=== PATIENT | female | born 1950 | race Two or more races ===

== ENCOUNTER 2024-11-15 19:47 | Emergency (ER) | payer OTHER, SELFPAY ==
--- NOTE | 2024-11-15 19:59 | EKG_ITS ---
[facility] Test Date: 2024-11-15 Pat Name: JOSE E DUMONT Department: Room: - Gender: Female Unit Leader: : 1950 Requested By: Mika Machado Order Number: [id number] Reading MD: Mika Machado Measurements Intervals [place] Rate: 66 P: 60 MI: 167 QRS: 67 QRSD: 78 T: 68 QT: 371 QTc: 389 Interpretive Statements SINUS RHYTHM Compared to ECG 06/27/2024 13:23:51 T-wave abnormality no longer present /store/S0/[id number]
[2024-11-15 20:20] VITALS: BP 186/75; PULSE 70; RESP 19; TEMP 36.6; O2SAT 98; BMI 27.3
--- NOTE | 2024-11-15 20:23 | PD.EDWEAK ---
ED Weakness RME/HPI General Chief complaint: Weakness Stated complaint: LEGS FEEL WEAK, FEELS LIKE GOING TO FAINT Time Seen by Provider: 11/15/24 20:19 Arrival date/time: 11/15/24 19:47 RME / HPI RME / HPI Narrative: 74-year-old female patient with significant history of hypertension, hypercholesterolemia, came in for evaluation regarding bilateral lower leg weakness. Onset of symptoms about 1 hour prior to ER visit, as bilateral legs feels like going away, associated with sensation of fainting. Patient denies any dizziness headache neck pain chest pain abdominal pain or back pain. Symptoms severity is mild. On my initial evaluation patient is walking and told me that her symptoms is totally gone. Related Data Home Medications ?Medication ?Instructions ?Recorded ?Confirmed glimepiride 4 mg tablet 4 mg PO QDAY 07/07/19 07/16/20 lisinopril 10 mg tablet 10 mg PO QDAY 07/07/19 07/16/20 lovastatin 20 mg tablet 20 mg PO QDAY 07/07/19 07/16/20 metformin 1,000 mg tablet 1,000 mg PO BID 07/07/19 07/16/20 nitroglycerin 0.4 mg sublingual 0.4 mg buccal PRN PRN Chest Pain 07/16/20 07/16/20 tablet Previous Rx's ?Medication ?Instructions ?Recorded acetaminophen 500 mg tablet 500 mg PO Q6H PRN pain #30 tabs 05/28/20 (Tylenol Extra Strength) meclizine 25 mg tablet 25 mg PO BID PRN dizziness #20 tabs 05/28/20 budesonide 180 mcg/actuation 2 inh inhalation BID #1 ea 12/13/22 breath activated powder inhaler azithromycin 500 mg tablet See Rx Instructions PO .COMPLEX #6 03/21/23 tabs benzonatate 100 mg capsule 100 mg PO TID #14 caps 03/21/23 meloxicam 15 mg tablet 15 mg PO QDAY #20 tabs 06/02/23 acetaminophen 500 mg capsule 1,000 mg (2 x 500 mg) PO Q8HR PRN 01/13/24 pain #30 caps albuterol sulfate 90 mcg/actuation 2 puff inhalation Q6H PRN 01/13/24 aerosol inhaler (ProAir HFA) shortness of breath or wheezing #8.5 grams benzonatate 100 mg capsule 100 mg PO TID #14 caps 01/13/24 docusate sodium 100 mg capsule 100 mg PO BID #20 caps 01/20/24 (Colace) peg 3350-electrolytes 236 240 ml PO Q10M #4,000 mL 01/20/24 gram-22.74 gram-6.74 gram-5.86 gram solution (Golytely) Allergies Allergy/AdvReac Type Severity Reaction Status Date / Time No Known Allergies Allergy Verified 01/20/24 13:30 Review of Systems Review of Systems Narrative Review of Systems: Review of system reviewed and within normal limits except mentioned in HPI ED Exam Narrative Physical exam: VITAL SIGNS: Reviewed. GENERAL APPEARANCE: Alert and interactive, follows commands, no acute distress, HEAD AND FACE: Non-traumatic. ENT: PERRL, pink conjunctivitis, eyelid no trauma, Mucous membrane moist. NECK: Supple, nontender, no nuchal rigidity. CHEST: No tenderness, no crepitus, no paradoxical movement, no retractions. LUNGS: Clear, well ventilated, symmetric, no rales, no wheezing, no ronchi, no stridor, good breath sounds bilaterally. HEART: Regular rate, regular rhythm, no murmur, no gallops. ABDOMEN: Soft, positive bowel sounds, nondistended, no guarding, nontender, no rebound, no masses, RECTAL: Deferred. GENITAL: Deferred. NEUROLOGICAL: Gross motor function intact sensory function intact, Appropriate for age. MUSCULOSKELETAL: low back nontender, full range of motion. EXTREMITIES: Nontender, full range of motion. SKIN: Color pink, dry, no rash, no lacerations, no abrasions, no contusions. LYMPHATICS: Deferred. Course Quality Measures none Orders Category Date Time Status Blood glucose [Bedside Blood Glucose] NOW Care 11/15/24 19:59 Active EKG (ED ONLY) *Do not use* NOW Care 11/15/24 20:00 Completed EKG (ED Only) Stat Exams 11/15/24 19:59 Draft CBC Stat Lab 11/15/24 20:47 Completed Comprehensive Metabolic Panel Stat Lab 11/15/24 20:47 Completed Partial Thromboplastin Time Stat Lab 11/15/24 20:47 Completed Vital Signs Vital signs: Vital Signs Temperature 97.9 F 11/15/24 20:20 Pulse Rate 70 11/15/24 20:20 Respiratory Rate 19 11/15/24 20:20 Blood Pressure 186/75 H 11/15/24 20:20 Pulse Oximetry (%) 98 11/15/24 20:20 Oxygen Delivery Method Room Air 11/15/24 20:20 Weakness [facility] Narrative [facility] Narrative:: 74-year-old female patient with significant history of hypertension, hypercholesterolemia, came in for evaluation regarding bilateral lower leg weakness. Onset of symptoms about 1 hour prior to ER visit, as bilateral legs feels like going away, associated with sensation of fainting. Patient denies any dizziness headache neck pain chest pain abdominal pain or back pain. Symptoms severity is mild. On my initial evaluation patient is walking and told me that her symptoms is totally gone. Patient's laboratory workup all came back normal. Multiple reevaluation patient told me that there was no recurrence of bilateral lower leg weakness. Patient was ambulatory more than 20 feet [id number] without any recurrence of the bilateral lower leg weakness. Patient is walking normal. Patient data External records reviewed:: None Clinical information provided by:: patient Social determinants that could affect healthcare access:: none Patient has the following chronic illnesses:: Hypertension diabetes mellitus How is presenting disease/condition affected by chronic disease/condition?: exacerbated by Evaluation data The following diagnostics were reviewed and interpreted by me:: lab results Lab and/or radiology exams considered but not ordered:: None Interpretation Summary: See results in MDM Medications / Prescriptions Medications or Prescriptions considered but not ordered:: None Medication administrations:: None Consultations Consultation(s) initiated? (list below): No Diagnosis Weakness Differential Diagnosis: dehydration and other (Bilateral lower leg weakness, muscle weakness,) Most likely diagnosis given after review of the tests above:: Bilateral lower leg weakness Admission Indicated Admission indicated?: not indicated Admission Request Was there a request for admission?: No Disposition Plan Disposition Plan: Discharge Discharge Attestation Discharge Attestation: The patient was given an opportunity to ask questions and understood the discharge instructions. Discharge instructions specifically effects, indications for sooner follow up or return to the emergency department, and the expected course of current diagnosis. Patient condition: Stable Discharge Plan Plan Patient Disposition: HOME (Self Care) Disposition Comment: Stable Prescriptions/Referrals Prescriptions/Med Rec: No Action meclizine 25 mg tablet 25 mg PO BID PRN (Reason: dizziness) Qty: 20 0RF acetaminophen [Tylenol Extra Strength] 500 mg tablet 500 mg PO Q6H PRN (Reason: pain) Qty: 30 0RF metformin 1,000 mg tablet 1,000 mg PO BID Patient Comments: TOME FRIDA TABLETA POR V?A ORAL DOS VECES AL D?A lisinopril 10 mg tablet 10 mg PO QDAY Patient Comments: TOME FRIDA TABLETA TODOS LOS D? glimepiride 4 mg tablet 4 mg PO QDAY Patient Comments: TOME FRIDA TABLETA POR V?A ORAL TODOS LOS D? lovastatin 20 mg tablet 20 mg PO QDAY Patient Comments: TOME FRIDA TABLETA POR V?A ORAL CON LAS COMIDAS EN LA NOCHE TODOS LOS D? nitroglycerin 0.4 mg tablet, sublingual 0.4 mg BUCCAL PRN PRN (Reason: Chest Pain) benzonatate 100 mg capsule 100 mg PO TID Qty: 14 0RF azithromycin 500 mg tablet See Rx Instructions .ROUTE .COMPLEX Qty: 6 0RF Rx Instructions: take 500 mg today (day 1), then 250 mg for 4 days (days 2-5) meloxicam 15 mg tablet 15 mg PO QDAY Qty: 20 0RF docusate sodium [Colace] 100 mg capsule 100 mg PO BID Qty: 20 0RF peg 3350-electrolytes [Golytely] 236-22.74-6.74 -5.86 gram recon soln 240 ml PO Q10M Qty: 4000 0RF Rx Instructions: until fecal effluent is clear budesonide 180 mcg/actuation aerosol powdr breath activated 2 inh inhalation BID Qty: 1 0RF acetaminophen 500 mg capsule 1,000 mg PO Q8HR PRN (Reason: pain) Qty: 30 0RF benzonatate 100 mg capsule 100 mg PO TID Qty: 14 0RF albuterol sulfate [ProAir HFA] 90 mcg/actuation HFA aerosol inhaler 2 puff inhalation Q6H PRN (Reason: shortness of breath or wheezing) Qty: 8.5 0RF Referrals: No Primary/Family,Physician [Primary Care Provider] - In 1 week Problem List Clinical Impression: Bilateral leg weakness Patient/Caregiver Discharge Instructions Discharge Activity: activity as tolerated Education Materials: Preventing Falls: Staying Active Additional Instructions: Thank you for the opportunity for serving you today. You are stable for discharged . You are advised to: Follow-up with your PCP in 1 to 2 days Return to ED for worsening of symptoms Increase oral fluids Print Language: Thai Stand Alone Forms: Corinne Award Info., Patient Portal Info Letter PA/FINANCIAL EXAMINER Supervising Physician PA/FINANCIAL EXAMINER Supervising Physician: MD Carolina
[2024-11-15 21:05] LABS: Basophils # (Auto) 0.1 Thou/mm3 (0.0-0.2); Basophils % (Auto) 1 % (0-2.5); Eosinophils # (Auto) 0.1 Thou/mm3 (0.0-0.5); Eosinophils % (Auto) 1 % (0-10); Hematocrit 33.4 % (36.0-46.0); Hemoglobin 11.8 g/dL (12.0-16.0); Immature Granulocytes % (Auto) 0 % (0-0); Immature Granulocytes Auto 0.02 Thou/mm3 (0.00-0.00); Lymphocytes # (Auto) 1.9 Thou/mm3 (1.0-4.8); Lymphocytes % (Auto) 18 % (10-50); Mean Corpuscular HGB Conc 35.3 g/dl (31.0-37.0); Mean Corpuscular Hemoglobin 31.1 pg (25.0-35.0); Mean Corpuscular Volume 88 fL (80-100); Monocytes # (Auto) 0.8 Thou/mm3 (0.0-0.8); Monocytes % (Auto) 8 % (0-12); Neutrophils # (Auto) 7.4 Thou/mm3 (1.8-7.7); Neutrophils % (Auto) 72 % (37-80); Nucleated Red Blood Cell % 0 /100 WBC (0); Platelet Count 187 Thou/mm3 (140-440); RDW Standard Deviation 41.5 fL (36.4-46.3); White Blood Count 10.2 Thou/mm3 (3.6-11.0)
[2024-11-15 21:10] LABS: Partial Thromboplastin Time 25.9 Seconds (22.0-36.0)
[2024-11-15 21:14] LABS: Alanine Aminotransferase 9 U/L (10-49); Albumin, Serum 4.2 gm/dL (3.4-4.8); Albumin/Globulin Ratio 1.6 (1.2-2.2); Alkaline Phosphatase 84 U/L (46-116); Anion Gap 9 (7-16); Aspartate Amino Transferase 17 U/L (0-34); BUN/Creatinine Ratio 15 Ratio (12-20); Bilirubin,Total 0.6 mg/dL (0.3-1.2); Blood Urea Nitrogen 15 mg/dL (9-23); Calcium 9.9 mg/dL (8.3-10.6); Calcium (Corrected) 9.9 mg/dL (8.5-10.1); Carbon Dioxide 24.3 mMol/L (20.0-31.0); Chloride 101 mMol/L (98-107); Estimated Creatinine Clearance 42.8 mL/min (>60); Globulin 2.7 gm/dL (2.3-3.5); Glucose 101 mg/dL (74-106); Osmolality,Calculated 269 (275-295); Potassium 4.2 mMol/L (3.4-5.1); Sodium 134 mMol/L (136-145); Total Protein 6.9 gm/dL (5.7-8.2); eGFR 59 See Note
== END 2024-11-15 22:55 | disposition home or self-care (01) ==
PROVIDERS: Nurse Practitioner Family; Emergency Provider Emergency Medicine
DX: R53.1 Weakness (principal); I10 Essential (primary) hypertension; E78.00 Pure hypercholesterolemia, unspecified
CPT/HCPCS: 36415; 80053; 81001; 85025; 85730; 93005; 99283

== ENCOUNTER 2025-05-08 17:50 | Emergency (ER) | payer OTHER, SELFPAY ==
[2025-05-08 18:47] VITALS: BP 178/72; PULSE 71; RESP 18; TEMP 36.6; O2SAT 97; BMI 23.8
--- NOTE | 2025-05-08 19:29 | PD.EDDENTL ---
ED Dental RME/HPI General Chief complaint: Dental/Oral/Throat Stated complaint: TONGUE IS BURNING, NAUSEA, HEADACHE Time Seen by Provider: 05/08/25 18:57 Arrival date/time: 05/08/25 17:50 74-year-old female reports with complaints of sores on the tongue and lips some nausea and headache that has been occurring for 7 months. Patient does have a primary care appointment tomorrow where she will have labs drawn but she is more concerned the sores on her tongue. Patient states that is causing difficulty for her to eat and resullting in nausea. she denies any fever or chills weakness fatigue vomiting diarrhea constipation blood or mucus in stools. Patient has not taken any medications for symptoms Limitations: no limitations Related Data Home Medications ?Medication ?Instructions ?Recorded ?Confirmed glimepiride 4 mg tablet 4 mg PO QDAY 07/07/19 07/16/20 lisinopril 10 mg tablet 10 mg PO QDAY 07/07/19 07/16/20 lovastatin 20 mg tablet 20 mg PO QDAY 07/07/19 07/16/20 metformin 1,000 mg tablet 1,000 mg PO BID 07/07/19 07/16/20 nitroglycerin 0.4 mg sublingual 0.4 mg buccal PRN PRN Chest Pain 07/16/20 07/16/20 tablet Previous Rx's ?Medication ?Instructions ?Recorded acetaminophen 500 mg tablet 500 mg PO Q6H PRN pain #30 tabs 05/28/20 (Tylenol Extra Strength) meclizine 25 mg tablet 25 mg PO BID PRN dizziness #20 tabs 05/28/20 budesonide 180 mcg/actuation 2 inh inhalation BID #1 ea 12/13/22 breath activated powder inhaler azithromycin 500 mg tablet See Rx Instructions PO .COMPLEX #6 03/21/23 tabs benzonatate 100 mg capsule 100 mg PO TID #14 caps 03/21/23 meloxicam 15 mg tablet 15 mg PO QDAY #20 tabs 06/02/23 acetaminophen 500 mg capsule 1,000 mg (2 x 500 mg) PO Q8HR PRN 01/13/24 pain #30 caps albuterol sulfate 90 mcg/actuation 2 puff inhalation Q6H PRN 01/13/24 aerosol inhaler (ProAir HFA) shortness of breath or wheezing #8.5 grams benzonatate 100 mg capsule 100 mg PO TID #14 caps 01/13/24 docusate sodium 100 mg capsule 100 mg PO BID #20 caps 01/20/24 (Colace) peg 3350-electrolytes 236 240 ml PO Q10M #4,000 mL 01/20/24 gram-22.74 gram-6.74 gram-5.86 gram solution (Golytely) magic mouth wash See Rx Instructions .Route 05/08/25 .COMPLEX #118 mL Allergies Allergy/AdvReac Type Severity Reaction Status Date / Time No Known Allergies Allergy Verified 05/08/25 17:53 Review of Systems Constitutional Constitutional: Denies chills, Denies fever(s) and Denies headache(s) ENT Ears, Nose, Mouth, and Throat: Denies dizziness, Denies headache(s), Reports mouth lesions, Reports mouth pain, Denies nose pain, Denies sinus pain, Denies throat swelling and Denies tongue swelling Cardiovascular Cardiovascular: Denies chest pain and Denies dyspnea Respiratory Respiratory: Denies cough and Denies dyspnea Gastrointestinal Gastrointestinal: Reports nausea and Denies vomiting Integumentary/Breasts Skin/Breast: Denies skin pain and Denies unusual bruising Neurologic Neurologic: Denies dizziness and Denies headache(s) Allergic/Immunologic Allergic/Immunologic: Denies throat swelling and Denies tongue swelling Past Medical History Past Medical History NEUROLOGIC: Negative Neurological Disorders or Seizures CARDIAC: Positive Hypercholesterolemia and Hypertension; Negative Cardiac Disorders or Congestive Heart Failure RESPIRATORY: Positive Asthma; Negative Chronic Obstructive Pulmonary Disease (COPD) GASTROINTESTINAL: Positive Gastrointestinal Disorders GENITOURINARY: Positive Genitourinary Disorders and Kidney Stones; Negative Renal Disease MUSCULOSKELETAL: Positive Musculoskeletal Disorders and Arthritis ENT: Positive Cataracts ENDOCRINE: Positive Endocrine Disorders and Diabetes Mellitus Type 2; Negative Diabetes Mellitus Type 1 HEMATOLOGIC: Negative Blood Disorders OTHER HISTORY: Negative Autoimmune Disease, Blood Transfusions, Blood Transfusion Reaction or Anesthesia Reactions Surgical History SURGICAL: Positive Section Social History SMOKING STATUS: Never smoker ED Exam General Limitations: Present no limitations General appearance: Present alert and in no apparent distress Head Head exam: Present atraumatic Eye Eye exam: Present normal appearance, PERRL and EOMI ENT ENT exam: Present mucous membranes moist; Absent normal exam or normal oropharynx (Multiple chancre sore noted ) Neck Neck exam: Present normal inspection, full ROM and trachea midline Back Exam Back exam: Present normal inspection and full ROM Neurological Exam Neurological exam: Present alert, oriented X3 and CN II-XII intact Psychiatric Psychiatric exam: Present normal affect and normal mood Skin Skin exam: Present warm, dry, intact and normal color Course Quality Measures none Vital Signs Vital signs: Vital Signs Temperature 98 F 05/08/25 18:47 Pulse Rate 71 05/08/25 18:47 Respiratory Rate 18 05/08/25 18:47 Blood Pressure 178/72 H 05/08/25 18:47 Pulse Oximetry (%) 97 05/08/25 18:47 Oxygen Delivery Method Room Air 05/08/25 18:47 Dental / Oral Patient data External records reviewed:: None Clinical information provided by:: patient Social determinants that could affect healthcare access:: none Patient has the following chronic illnesses:: none How is presenting disease/condition affected by chronic disease/condition?: no chronic disease Evaluation data The following diagnostics were reviewed and interpreted by me:: other (specify) (none) Lab and/or radiology exams considered but not ordered:: none Interpretation Summary: n/a Medications / Prescriptions Medications or Prescriptions considered but not ordered:: none Medication administrations:: none Consultations Consultation(s) initiated? (list below): No Diagnosis Most likely diagnosis given after review of the tests above:: Aphthous ulcers Admission Indicated Admission indicated?: not indicated Admission Request Was there a request for admission?: No Disposition Plan Disposition Plan: Discharge Discharge Attestation Discharge Attestation: The patient and all family members were given an opportunity to ask questions and understood the discharge instructions. Discharge instructions specifically effects, indications for sooner follow up or return to the emergency department, and the expected course of current diagnosis. Patient condition: Stable Discharge Plan Plan Patient Disposition: HOME (Self Care) Prescriptions/Referrals Prescriptions/Med Rec: New magic mouth wash See Rx Instructions .ROUTE .COMPLEX Qty: 118 0RF Rx Instructions: 1/3 Benadryl 12.5mg; 1/3 Maalox; 1/3 Xylocaine 2% sig: hold 5 mL in mouth for 2 min then swallow q6h No Action meclizine 25 mg tablet 25 mg PO BID PRN (Reason: dizziness) Qty: 20 0RF acetaminophen [Tylenol Extra Strength] 500 mg tablet 500 mg PO Q6H PRN (Reason: pain) Qty: 30 0RF metformin 1,000 mg tablet 1,000 mg PO BID Patient Comments: KAYY GALICIA TABLETA POR V?A ORAL DOS VECES AL D?A lisinopril 10 mg tablet 10 mg PO QDAY Patient Comments: TOME FRIDA TABLETA TODOS LOS D? glimepiride 4 mg tablet 4 mg PO QDAY Patient Comments: TOME FRIDA TABLETA POR V?A ORAL TODOS LOS D? lovastatin 20 mg tablet 20 mg PO QDAY Patient Comments: TOME FRIDA TABLETA POR V?A ORAL CON LAS COMIDAS EN LA NOCHE TODOS LOS D? nitroglycerin 0.4 mg tablet, sublingual 0.4 mg BUCCAL PRN PRN (Reason: Chest Pain) benzonatate 100 mg capsule 100 mg PO TID Qty: 14 0RF azithromycin 500 mg tablet See Rx Instructions .ROUTE .COMPLEX Qty: 6 0RF Rx Instructions: take 500 mg today (day 1), then 250 mg for 4 days (days 2-5) meloxicam 15 mg tablet 15 mg PO QDAY Qty: 20 0RF docusate sodium [Colace] 100 mg capsule 100 mg PO BID Qty: 20 0RF peg 3350-electrolytes [Golytely] 236-22.74-6.74 -5.86 gram recon soln 240 ml PO Q10M Qty: 4000 0RF Rx Instructions: until fecal effluent is clear budesonide 180 mcg/actuation aerosol powdr breath activated 2 inh inhalation BID Qty: 1 0RF acetaminophen 500 mg capsule 1,000 mg PO Q8HR PRN (Reason: pain) Qty: 30 0RF benzonatate 100 mg capsule 100 mg PO TID Qty: 14 0RF albuterol sulfate [ProAir HFA] 90 mcg/actuation HFA aerosol inhaler 2 puff inhalation Q6H PRN (Reason: shortness of breath or wheezing) Qty: 8.5 0RF Referrals: Jose G Gil MD [Primary Care Provider, Family Practice] - In 1 week Problem List Clinical Impression: Aphthous ulcer Patient/Caregiver Discharge Instructions Discharge Activity: activity as tolerated Education Materials: Understanding Canker Sores, ED Canker Sore Additional Instructions: Use medication as directed and as needed follow with your primary care provider as planned and hydrate well Print Language: [place] Stand Alone Forms: Corinne Award Info., Patient Portal Info Letter
[2025-05-08] MEDS: ONDANSETRON ODT 4 MG TABRAP PO (19:56)
== END 2025-05-08 19:57 | disposition home or self-care (01) ==
PROVIDERS: Emergency Provider Emergency Medicine; PCP Family Medicine
DX: K12.0 Recurrent oral aphthae (principal)
CPT/HCPCS: 99283; Q0162

== ENCOUNTER 2025-05-22 13:26 | Emergency (ER) | payer OTHER, SELFPAY ==
[2025-05-22 13:34] VITALS: BP 151/64; PULSE 79; RESP 18; TEMP 36.9; O2SAT 97
--- NOTE | 2025-05-22 13:38 | XR_ITS ---
Examination: PA lateral chest 2 views TECHNIQUE: Upright PA lateral chest 2 views Date and time: May 22, 2025, 1418 hours INDICATIONS: Injury to the chest 5 days ago, chest pain FINDINGS: Normal heart size Small retrocardiac gastric hernia. No pneumothorax. Clavicles, ribs thoracic vertebral bodies appear intact IMPRESSION: No pneumothorax pulmonary contusion or hemothorax
--- NOTE | 2025-05-22 13:38 | EDRME_ITS ---
Rapid Medical Screening Exam RME Arrival date/time: 05/22/25 13:26 74-year-old female presents Emergency Department today states she had a ground- level fall on Tuesday patient reports on Tuesday she developed pain in her chest. Chief Complaint: Fall Vital signs: Vital Signs Temperature 98.5 F 05/22/25 13:34 Pulse Rate 79 05/22/25 13:34 Respiratory Rate 18 05/22/25 13:34 Blood Pressure 151/64 H 05/22/25 13:34 Pulse Oximetry (%) 97 05/22/25 13:34 Oxygen Delivery Method Room Air 05/22/25 13:34
--- NOTE | 2025-05-22 13:38 | EKG_ITS ---
[facility] Test Date: 2025-05-22 Pat Name: JOSE E DUMONT Department: Room: - Gender: Female Emergency Veterinarian: : 1950 Requested By: Romeo Ny (STAN) Order Number: [id number] Reading MD: Romeo Ny (AIR EXPORT OPERATIONS AGENT) Measurements Intervals [place] Rate: 72 P: 50 UT: 167 QRS: 65 QRSD: 78 T: 56 QT: 358 QTc: 393 Interpretive Statements SINUS RHYTHM Compared to ECG 11/15/2024 20:17:21 No significant changes /store/S0/[id number]
[2025-05-22 14:03] LABS: Collection Type, Urine Clean Catch
[2025-05-22 14:03] LABS: Basophils # (Auto) 0.0 Thou/mm3 (0.0-0.2); Basophils % (Auto) 0 % (0-2.5); Eosinophils # (Auto) 0.0 Thou/mm3 (0.0-0.5); Eosinophils % (Auto) 0 % (0-10); Hematocrit 33.6 % (36.0-46.0); Hemoglobin 11.4 g/dL (12.0-16.0); Immature Granulocytes Auto 0.03 Thou/mm3 (0.00-0.00); Lymphocytes # (Auto) 0.9 Thou/mm3 (1.0-4.8); Lymphocytes % (Auto) 9 % (10-50); Mean Corpuscular HGB Conc 33.9 g/dl (31.0-37.0); Mean Corpuscular Hemoglobin 30.6 pg (25.0-35.0); Mean Corpuscular Volume 90 fL (80-100); Monocytes # (Auto) 0.7 Thou/mm3 (0.0-0.8); Monocytes % (Auto) 8 % (0-12); Neutrophils # (Auto) 8.0 Thou/mm3 (1.8-7.7); Neutrophils % (Auto) 82 % (37-80); Nucleated Red Blood Cell # 0.00 Thou/mm3 (0.00-0.00); Nucleated Red Blood Cell % 0 /100 WBC (0); Platelet Count 214 Thou/mm3 (140-440); RDW Standard Deviation 42.3 fL (36.4-46.3); Red Blood Count 3.72 Miln/mm3 (4.00-5.20); White Blood Count 9.7 Thou/mm3 (3.6-11.0)
[2025-05-22 14:23] LABS: Bacteria,Urine Rare; Bilirubin,Urine Negative (Negative); Blood,Urine 2+ (Negative); Color,Urine Yellow (Lt Yel-Yel); Glucose, Urine Negative (Negative); Ketones,Urine Negative (Negative); Leukocyte Esterase,Urine Positive (Negative); Nitrite,Urine Negative (Negative); PH,Urine 5.5 (5.0-7.0); Protein,Urine 1+ (Neg - Trace); RBC,Urine 8 /hpf (0-3); Specific Gravity,Urine 1.009 (1.001-1.035); Squamous Epithelial Cell,Urine 2 /hpf (0-5); Urobilinogen,Urine Negative mg/dL (0.0-1.0); WBC,Urine 1031 /hpf (0-5)
[2025-05-22 14:25] LABS: Clarity,Urine Turbid (Clear/Hazy); Culture Indicated,Urine Yes
[2025-05-22 14:32] LABS: Alanine Aminotransferase 10 U/L (10-49); Albumin, Serum 4.2 gm/dL (3.4-4.8); Albumin/Globulin Ratio 1.8 (1.2-2.2); Alkaline Phosphatase 86 U/L (46-116); Anion Gap 8 (7-16); Aspartate Amino Transferase 15 U/L (0-34); BUN/Creatinine Ratio 13 Ratio (12-20); Bilirubin,Total 0.9 mg/dL (0.3-1.2); Blood Urea Nitrogen 13 mg/dL (9-23); Calcium 9.1 mg/dL (8.3-10.6); Calcium (Corrected) 9.1 mg/dL (8.5-10.1); Carbon Dioxide 26.0 mMol/L (20.0-31.0); Chloride 101 mMol/L (98-107); Creatinine (Component) 1.0 mg/dL (0.6-1.3); Estimated Creatinine Clearance 47.1 mL/min (>60); Globulin 2.4 gm/dL (2.3-3.5); Glucose 207 mg/dL (74-106); Osmolality,Calculated 276 (275-295); Potassium 4.2 mMol/L (3.4-5.1); Sodium 135 mMol/L (136-145); Total Protein 6.6 gm/dL (5.7-8.2); Troponin I < 0.002 ng/mL (0.0-0.045); eGFR 59 See Note
--- NOTE | 2025-05-22 16:46 | EDNOTE_ITS ---
ED Fall Injury RME/HPI General Chief Complaint: Fall Stated Complaint: FELL CATCHING SELF W/ R) ARM, INTERM. CHEST PAIN Time Seen by Provider: 05/22/25 15:08 Arrival date/time: 05/22/25 13:26 RME / HPI RME / HPI Narrative: 74-year-old female with significant history of diabetes mellitus, hypertension presents Emergency Department today states she had a ground-level fall on Tuesday patient reports on Tuesday she developed pain in her chest. Described as dull ache, severity mild. Patient also complained of dysuria since Tuesday, getting worse severity moderate. Denies any fever denies any vomiting denies any back pain. Denies any abdominal pain. No medication was taken prior to ER visit. Related Data Home Medications ?Medication ?Instructions ?Recorded ?Confirmed glimepiride 4 mg tablet 4 mg PO QDAY 07/07/19 lisinopril 10 mg tablet 10 mg PO QDAY 07/07/1907/16 lovastatin 20 mg tablet 20 mg PO QDAY 07/07/1907/16 metformin 1,000 mg tablet 1,000 mg PO BID 07/07/19 nitroglycerin 0.4 mg sublingual 0.4 mg buccal PRN PRN Chest Pain 07/16/20 07/16/20 tablet Previous Rx's ?Medication ?Instructions ?Recorded acetaminophen 500 mg tablet 500 mg PO Q6H PRN pain #30 tabs 05/28/20 (Tylenol Extra Strength) meclizine 25 mg tablet 25 mg PO BID PRN dizziness # 20 tabs 05/28/20 budesonide 180 mcg/actuation 2 inh inhalation BID #1 e a 12/13/22 breath activated powder inhaler azithromycin 500 mg tablet See Rx Instructions PO .COM PLEX #6 03/21/23 tabs benzonatate 100 mg capsule 100 mg PO TID #14 caps 02/27 12/19 meloxicam 15 mg tablet 15 mg PO QDAY #20 tabs 06/02 acetaminophen 500 mg capsule 1,000 mg (2 x 500 mg) PO Q8HR PRN 01/13/24 pain #30 caps albuterol sulfate 90 mcg/actuation 2 puff inhalation Q 6H PRN 01/13/24 aerosol inhaler (ProAir HFA) shortness of breath or wh eezing #8.5 grams benzonatate 100 mg capsule 100 mg PO TID #14 caps 12/27 03/21 docusate sodium 100 mg capsule 100 mg PO BID #20 caps 01/20/24 (Colace) peg 3350-electrolytes 236 240 ml PO Q10M #4,000 mL gram-22.74 gram-6.74 gram-5.86 gram solution (Golytely) magic mouth wash See Rx Instructions .Route 0 05/08/25 .COMPLEX #118 mL cefuroxime axetil 500 mg tablet 500 mg PO BID #14 tabs 05/22/25 Allergies Allergy/AdvReac Type Severity Reaction Status Date / Time No Known Allergies Allergy Verified 05/22/25 13:32 Review of Systems Review of Systems Narrative Review of Systems: Review of system reviewed and within normal limits except mentioned in HPI ED Exam Narrative Physical exam: VITAL SIGNS: Reviewed. GENERAL APPEARANCE: Alert and interactive, follows commands, no acute distress, HEAD AND FACE: Non-traumatic. ENT: PERRL, pink conjunctivitis, eyelid no trauma, Mucous membrane moist. NECK: Supple, nontender, no nuchal rigidity. CHEST: No tenderness, no crepitus, no paradoxical movement, no retractions. LUNGS: Clear, well ventilated, symmetric, no rales, no wheezing, no ronchi, no stridor, good breath sounds bilaterally. HEART: Regular rate, regular rhythm, no murmur, no gallops. ABDOMEN: Soft, positive bowel sounds, nondistended, no guarding, nontender, no rebound, no masses, RECTAL: Deferred. GENITAL: Deferred. NEUROLOGICAL: Gross motor function intact sensory function intact, Appropriate for age. MUSCULOSKELETAL: low back nontender, full range of motion. EXTREMITIES: Nontender, full range of motion. SKIN: Color pink, dry, no rash, no lacerations, no abrasions, no contusions. LYMPHATICS: Deferred. Course Quality Measures none Orders Category Date Time Status EKG (ED ONLY) *Do not use* NOW Care 05/22/25 13:38 Completed EKG (ED Only) Stat Exams 05/22/25 13:38 Draft XR chest 2V Stat Exams 05/22/25 13:38 Completed CBC Stat Lab 05/22/25 13:41 Completed Comprehensive Metabolic Panel Stat Lab 05/22/25 13:41 Completed Troponin I Stat Lab 05/22/25 13:41 Completed UA, C/S IF [Urinalysis, C/S if Indicated] Stat Lab 05/22/25 13:59 Completed Urine Culture Stat Lab 05/22/25 13:59 Received cefTRIAXone [Rocephin] 1,000 mg Med 05/22/25 16:45 Ordered Lidocaine 1% 20 ml [Xylocaine 1% 20 ML] 2.1 ml IM X1 Vital Signs Vital signs: Vital Signs Temperature 98.5 F 05/22/25 13:34 Pulse Rate 79 05/22/25 13:34 Respiratory Rate 18 05/22/25 13:34 Blood Pressure 151/64 H 05/22/25 13:34 Pulse Oximetry (%) 97 05/22/25 13:34 Oxygen Delivery Method Room Air 05/22/25 13:34 Fall MDM Narrative MDM Narrative:: 74-year-old female with significant history of diabetes mellitus, hypertension presents Emergency Department today states she had a ground-level fall on Tuesday patient reports on Tuesday she developed pain in her chest. Described as dull ache, severity mild. Patient also complained of dysuria since Tuesday, getting worse severity moderate. Denies any fever denies any vomiting denies any back pain. Denies any abdominal pain. No medication was taken prior to ER visit. Patient reports workup is significant for UTI no leukocytosis noted. Chest x- ray came back unremarkable. Patient's blood sugar was noted to be 207 with no sign of diabetic acidosis. EKG showed normal sinus rhythm, ventricular rate of 72 bpm, no ST segment elevation depression noted. Patient received ceftriaxone IM. Patient appears nontoxic and hemodynamically stable .Decision to discharge the patient. The patient/family was given an opportunity to ask questions and understood their discharge instructions. Discharge instructions specifically included follow up provider and time frame, current and/or new medications and possible side effects, indications for sooner follow up or return to the emergency department, and the expected course of current diagnosis. Patient reports feeling better as well and giving evidence of significant clinical improvement, I believe patient is now a candidate for discharge. Patient data External records reviewed:: None Clinical information provided by:: patient Social determinants that could affect healthcare access:: none Patient has the following chronic illnesses:: Diabetes hypertension How is presenting disease/condition affected by chronic disease/condition?: uneffected by Evaluation data The following diagnostics were reviewed and interpreted by me:: lab results, radiology exam(s) and EKG tracing(s) Lab and/or radiology exams considered but not ordered:: None Interpretation Summary: See [facility] Medications / Prescriptions Medications or Prescriptions considered but not ordered:: None Medication administrations:: Medication Administration History Ceftriaxone Sodium 1,000 mg/ (Lidocaine HCl 2.1 ml) 0 mg IM X1 ONE Stop: 05/22/25 16:46 Ceftriaxone IM Consultations Consultation(s) initiated? (list below): No Diagnosis Fall Differential Diagnosis: other (Fall, rib fracture, UTI) Most likely diagnosis given after review of the tests above:: Fall, chest pain, UTI Admission Indicated Admission indicated?: not indicated Explain why admission is indicated or not indicated:: Stable Admission Request Was there a request for admission?: No Disposition Plan Disposition Plan: Discharge Discharge Attestation Discharge Attestation: The patient was given an opportunity to ask questions and understood the discharge instructions. Discharge instructions specifically effects, indications for sooner follow up or return to the emergency department, and the expected course of current diagnosis. Patient condition: Stable Discharge Plan Plan Patient Disposition: HOME (Self Care) Discharge Disposition comment: Stable Prescriptions/Referrals Prescriptions/Med Rec: New cefuroxime axetil 500 mg tablet 500 mg PO BID Qty: 14 0RF No Action meclizine 25 mg tablet 25 mg PO BID PRN (Reason: dizziness) Qty: 20 0RF acetaminophen [Tylenol Extra Strength] 500 mg tablet 500 mg PO Q6H PRN (Reason: pain) Qty: 30 0RF metformin 1,000 mg tablet 1,000 mg PO BID Patient Comments: TOME FRIDA TABLETA POR V?A ORAL DOS VECES AL D?A lisinopril 10 mg tablet 10 mg PO QDAY Patient Comments: TOME FRIDA TABLETA TODOS LOS D? glimepiride 4 mg tablet 4 mg PO QDAY Patient Comments: TOME FRIDA TABLETA POR V?A ORAL TODOS LOS D? lovastatin 20 mg tablet 20 mg PO QDAY Patient Comments: TOME FRIDA TABLETA POR V?A ORAL CON LAS COMIDAS EN LA NOCHE TODOS LOS D? nitroglycerin 0.4 mg tablet, sublingual 0.4 mg BUCCAL PRN PRN (Reason: Chest Pain) benzonatate 100 mg capsule 100 mg PO TID Qty: 14 0RF azithromycin 500 mg tablet See Rx Instructions .ROUTE .COMPLEX Qty: 6 0RF Rx Instructions: take 500 mg today (day 1), then 250 mg for 4 days (days 2-5) meloxicam 15 mg tablet 15 mg PO QDAY Qty: 20 0RF docusate sodium [Colace] 100 mg capsule 100 mg PO BID Qty: 20 0RF peg 3350-electrolytes [Golytely] 236-22.74-6.74 -5.86 gram recon soln 240 ml PO Q10M Qty: 4000 0RF Rx Instructions: until fecal effluent is clear budesonide 180 mcg/actuation aerosol powdr breath activated 2 inh inhalation BID Qty: 1 0RF acetaminophen 500 mg capsule 1,000 mg PO Q8HR PRN (Reason: pain) Qty: 30 0RF benzonatate 100 mg capsule 100 mg PO TID Qty: 14 0RF albuterol sulfate [ProAir HFA] 90 mcg/actuation HFA aerosol inhaler 2 puff inhalation Q6H PRN (Reason: shortness of breath or wheezing) Qty: 8.5 0RF magic mouth wash See Rx Instructions .ROUTE .COMPLEX Qty: 118 0RF Rx Instructions: 1/3 Benadryl 12.5mg; 1/3 Maalox; 1/3 Xylocaine 2% sig: hold 5 mL in mouth for 2 min then swallow q6h Referrals: Jose G Gil MD [Primary Care Provider, Family Practice] - In 1 week Problem List Clinical Impression: Fall, UTI (urinary tract infection) Patient/Caregiver Discharge Instructions Discharge Activity: activity as tolerated Education Materials: Understanding Urinary Tract ... Additional Instructions: Thank you for the opportunity for serving you today. You are stable for discharged . You are advised to: Follow-up with your PCP in 1 to 2 days Return to ED for worsening of symptoms Increase oral fluids Take medication as prescribed Print Language: Slovak Stand Alone Forms: Corinne Award Info., Patient Portal Info Letter PA/CORRECTIONAL OFFICER SERGEANT Supervising Physician PA/CORRECTIONAL OFFICER SERGEANT Supervising Physician: MD Min
[2025-05-22] MEDS: cefTRIAXone 1,000 MG, LIDOCAINE 1% 20 ML 2.1 ML IM (17:09)
== END 2025-05-22 17:14 | disposition home or self-care (01) ==
PROVIDERS: Nurse Practitioner Primary Care; Emergency Provider Emergency Medicine; PCP Family Medicine
DX: N39.0 Urinary tract infection, site not specified (principal); E11.9 Type 2 diabetes mellitus without complications; I10 Essential (primary) hypertension
CPT/HCPCS: 36415; 71046; 80053; 81001; 84484; 85025; 87077; 87086; 87186; 93005; 96372; 99283; J0696; J3490